=== PATIENT | female | born 1975 | race Caucasian/White ===

== ENCOUNTER 2021-04-30 18:47 | Emergency (ER) | payer OTHER ==
[~2021-04-30] VITALS: Ht 167.6 cm; Wt 76.2 kg
[~2021-04-30 18:47] MED LIST: AMOXICILLIN 50500 MG PO; AMOXICILLIN500 M1 PO; AUGMENTIN 875-1 EACH PO; AZITHROMYCIN 2250 MG PO; NAPROXEN 500MG500 MG PO; NOHOMEMEDICATIONS; VICODIN 5-5001 EACH PO
[2021-04-30 20:10] LABS: ABSOLUTE BASOPHILS 0.1 thou/uL (0.0-0.2); ABSOLUTE EOSINOPHILS 0.1 thou/uL (0.0-0.7); ABSOLUTE LYMPHOCYTES 1.1 thou/uL (0.8-5.3); ABSOLUTE MONOCYTES 0.6 thou/uL (0.0-1.2); ABSOLUTE NEUTROPHILS 4.6 thou/uL (1.6-8.1); BASOPHILS 1.5 %; EOSINOPHILS 1.8 %; HEMATOCRIT 30.6 % (37.0-47.0); HEMOGLOBIN 9.2 gm/dL (12.0-15.0); LYMPHOCYTES 17.5 %; MCH 19.7 pg (26.0-34.0); MCHC 30.1 g/dL (28.0-37.0); MCV 65.6 fL (80.0-100.0); MONOCYTES 8.6 %; MPV 8.8 fl. (7.2-11.1); NUCLEATED RBCS 0 /100WBC; PLATELET COUNT* 274 thou/uL (150-400); POLYS 70.6 %; RBC 4.66 mil/uL (4.20-5.00); RDW-CV 24.4 % (10.5-14.5); WBC 6.5 thou/uL (4.0-11.0)
[2021-04-30 20:21] LABS: CREATININE 0.7 mg/dL (0.6-1.3); POTASSIUM 3.7 mmol/L (3.5-5.1)
[2021-04-30 20:23] LABS: URINE BILIRUBIN NEGATIVE (Negative); URINE BLOOD NEGATIVE (Negative); URINE CLARITY CLEAR; URINE COLOR YELLOW; URINE GLUCOSE-RANDOM NEGATIVE (Negative); URINE KETONES NEGATIVE (Negative); URINE LEUKOCYTES-REFLEX NEGATIVE (Negative); URINE NITRITE-REFLEX NEGATIVE (Negative); URINE PROTEIN NEGATIVE (Negative); URINE SPECIFIC GRAVITY <= 1.005 (1.005-1.030); URINE UROBILINOGEN 0.2 E.U./dl (0.2-1.0)
[2021-04-30 20:26] LABS: INFLUENZA A ANTIGEN Negative (Negative); INFLUENZA B ANTIGEN Negative (Negative)
[2021-04-30 20:28] LABS: ANISOCYTOSIS 2+; HYPOCHROMASIA 2+; MICROCYTES 2+; PLATELET ESTIMATE ADEQUATE
[2021-04-30 20:30] LABS: ALBUMIN 4.2 g/dL (3.4-5.0); MAGNESIUM 2.3 mg/dL (1.8-2.4); TOTAL BILIRUBIN 0.1 mg/dL (<0.1-1.0); TOTAL PROTEIN 8.4 g/dL (6.4-8.2)
[2021-04-30] MEDS ORDERED: PROAIR HFA8.5 GM INH (22:48)
[2021-04-30] MEDS ORDERED: PREDNISONE50 MG PO (22:48)
[2021-04-30] MEDS ORDERED: ZOFRAN ODT4 MG PO (23:11)
[2021-04-30 23:21] VITALS: BP 148/55
--- NOTE | 2021-05-01 12:27 | EKG ---
[place] [address] ELECTROCARDIOGRAM REPORT Name: CUONG DAVISOGUILLE Room: [facility]#: [id number] Admission: 04/30/21 Attend Phys: Discharge: 04/30/21 Date of : 71 Date of Service: 04/30/211934 Report #: [id number] THIS REPORT FOR: //name// [facility] ED Test Date: 2021-04-30 Test Time: 19:35:24 Pat Name: GUILLE RODRIGEZ Department: Room: Gender: F Photocopying Equipment Mechanic: : 1975 Requested By: Ester Maldonado Order Number: [id number] MD: Crispin Turpin Measurements Intervals [place] Rate: 93 P: 54 IN: 167 QRS: 40 QRSD: 85 T: 43 QT: 350 QTc: 436 Interpretive Statements Sinus rhythm No previous ECG available for comparison Electronically Signed On 05-01-2021 12:27:26 [employer] by Crispin Turpin [email or web address] <ELECTRONICALLY SIGNED> By: Lucía Turpin MD, [facility] 05/01/217 34 34 Lucía Turpin MD, FACC /EPI
== END 2021-04-30 23:21 | disposition home or self-care (01) ==
LOC: M.ERS 18:47
PROVIDERS: Emergency Medicine
DX: D64.9 Anemia, unspecified (principal); Z20.822 Contact with and (suspected) exposure to COVID-19; R19.7 Diarrhea, unspecified; R11.2 Nausea with vomiting, unspecified; R05.9 Cough, unspecified; R06.02 Shortness of breath; M54.2 Cervicalgia; R10.13 Epigastric pain; Z98.890 Other specified postprocedural states; Z88.2 Allergy status to sulfonamides